=== PATIENT | female | born 1955 | race Caucasian/White ===

== ENCOUNTER → 2018-07-24 14:45 | Outpatient (CLI) | payer OTHER, SELFPAY ==
--- NOTE | 2018-07-24 | DI.MG.S_ITS ---
BILATERAL DIGITAL SCREENING MAMMOGRAM 3D/2D WITH CAD: 07/24/2018 CLINICAL: Routine screening. Comparison is made to exams dated: 07/23/2016 mammogram, 04/08/2011 mammogram, and 10/24/2007 mammogram - [facility]. The tissue of both breasts is heterogeneously dense. This may lower the sensitivity of mammography. Current study was also evaluated with a Computer Aided Detection (CAD) system. There are benign vascular calcifications in both breasts. There are mole markers on the right breast. There is a mole marker on the left breast. No significant masses, calcifications, or other findings are seen in either breast. There has been no significant interval change. IMPRESSION: There is no mammographic evidence of malignancy. A 1 year screening mammogram is recommended. This exam was interpreted at Station ID: [id number]. NOTE: For mammograms, a report in lay terms will be sent to the patient. Approximately 15% of breast malignancies will not be visualized mammographically. In the management of a palpable breast mass, a negative mammogram must not discourage biopsy of a clinically suspicious lesion. Electronically Signed By: Richard jewell/juan ramon:07/24/2018 17:37:19 letter sent: Normal Exam ACR BI-RADS Category 2: Benign Finding(s) 3342F
== END ==
DX: Z12.31 Encounter for screening mammogram for malignant neoplasm of breast (principal)
CPT/HCPCS: 77063; 77067

== ENCOUNTER → 2020-07-31 11:44 | Outpatient (CLI) | payer OTHER, SELFPAY ==
[2020-07-31 12:31] LABS: Add Manual Diff / Slide Review NO; Basophils Absolute Auto 100 /uL (0-100); Eosinophils Absolute Auto 100 /uL (0-450); Eosinophils Percent Auto 1.8 % (2-4); Hematocrit 42.1 % (36-46); Hemoglobin 14.3 g/dL (12.0-16.0); Lymphocytes Absolute Auto 2900 /uL (1100-4500); Lymphocytes Percent Auto 48.5 % (25-40); Mean Corpuscular HGB Conc 33.8 % (30-36); Mean Corpuscular Hemoglobin 31.3 PG (26-34); Mean Corpuscular Volume 92.6 fL (80-100); Monocytes Absolute Auto 400 /uL (0-900); Monocytes Percent Auto 6.6 % (3-14); Neutrophils Absolute Auto 2500 /uL (1500-7000); Neutrophils Percent Auto 42.1 % (50-75); Platelet Count 254 X10^3/uL (150-400); Red Blood Cell Count 4.55 X10^6/uL (4.0-5.2); Red Cell Distribution Width 12.9 % (11.6-14.8)
[2020-07-31 12:55] LABS: BUN Creatinine Ratio 21.5 (6-22); Blood Urea Nitrogen 17 mg/dL (7-17); Calcium 9.2 mg/dL (8.4-10.2); Carbon Dioxide 30 mmol/L (22-32); Chloride 101 mmol/L (98-107); Cholesterol 229 mg/dL (140-199); Estimated Glomerular Filt Rate > 60.0 mL/min (>60); Glucose 91 mg/dL (80-110); HDL Cholesterol 65 mg/dL (40-60); HEMOLYSIS < 15 (0-50); LDL Cholesterol Calculated 149 mg/dL (<100); Potassium 3.3 mmol/L (3.4-5.1); Sodium 136 mmol/L (137-145); Triglycerides 76 mg/dL (35-150)
[2020-07-31 13:05] LABS: Free T3, Triiodothyronine Free 2.74 pg/mL (2.77-5.27)
== END ==
PROVIDERS: PCP Family Medicine; Referring Provider Family Medicine; Visit Provider Family Medicine
DX: G89.29 Other chronic pain (principal); Z13.220 Encounter for screening for lipoid disorders; Z13.29 Encounter for screening for other suspected endocrine disorder
CPT/HCPCS: 36415; 80048; 80061; 84439; 84443; 84481; 85025

== ENCOUNTER → 2021-03-13 10:22 | Outpatient (CLI) | payer OTHER, SELFPAY ==
[2021-03-13 13:13] LABS: COVID19 -Nasal RAPID Negative (Negative)
== END ==
PROVIDERS: PCP Family Medicine; Visit Provider Nurse Practitioner
DX: Z20.822 Contact with and (suspected) exposure to COVID-19 (principal); R05.9 Cough, unspecified
CPT/HCPCS: 87635

== ENCOUNTER → 2021-04-11 10:53 | Outpatient (CLI) | payer OTHER, SELFPAY ==
[2021-04-11 11:21] LABS: COVID19 -Nasal RAPID Negative (Negative)
== END ==
PROVIDERS: PCP Family Medicine; Visit Provider Physician Assistant
DX: Z20.822 Contact with and (suspected) exposure to COVID-19 (principal)
CPT/HCPCS: 87635

== ENCOUNTER → 2021-09-17 08:02 | Outpatient (CLI) | payer OTHER, SELFPAY ==
[2021-09-17 08:48] LABS: Add Manual Diff / Slide Review NO; Basophils Absolute Auto 100 /uL (0-100); Eosinophils Absolute Auto 400 /uL (0-450); Eosinophils Percent Auto 6.2 % (2-4); Hematocrit 40.3 % (36-46); Hemoglobin 13.7 g/dL (12.0-16.0); Lymphocytes Absolute Auto 2800 /uL (1100-4500); Lymphocytes Percent Auto 48.8 % (25-40); Mean Corpuscular HGB Conc 34.1 % (30-36); Mean Corpuscular Hemoglobin 31.3 PG (26-34); Mean Corpuscular Volume 91.8 fL (80-100); Monocytes Absolute Auto 500 /uL (0-900); Monocytes Percent Auto 7.8 % (3-14); Neutrophils Absolute Auto 2100 /uL (1500-7000); Neutrophils Percent Auto 36.2 % (50-75); Platelet Count 274 X10^3/uL (150-400); Red Blood Cell Count 4.39 X10^6/uL (4.0-5.2); Red Cell Distribution Width 13.7 % (11.6-14.8); White Blood Cell Count 5.8 X10^3/uL (4.5-11.0)
[2021-09-17 09:26] LABS: Alanine Aminotransferase 15 IU/L (<35); Albumin 4.1 g/dL (3.5-5.0); Albumin Globulin Ratio 1.2 (1.0-2.8); Alkaline Phosphatase 45 U/L (38-126); Aspartate Aminotransferase 28 IU/L (14-36); BUN Creatinine Ratio 21.3 (6-22); Bilirubin Total 0.7 mg/dL (0.2-1.3); Blood Urea Nitrogen 19 mg/dL (7-17); Calcium 8.7 mg/dL (8.4-10.2); Carbon Dioxide 32 mmol/L (22-32); Chloride 104 mmol/L (98-107); Cholesterol 223 mg/dL (140-199); Estimated Glomerular Filt Rate > 60 mL/min (>60); Globulin 3.3 g/dL (1.7-4.1); Glucose 97 mg/dL (80-110); HDL Cholesterol 65 mg/dL (40-60); HEMOLYSIS < 15 (0-50); LDL Cholesterol Calculated 135 mg/dL (<100); Potassium 3.3 mmol/L (3.4-5.1); Sodium 140 mmol/L (137-145); Total Protein 7.4 g/dL (6.3-8.2); Triglycerides 114 mg/dL (35-150)
[2021-09-17 11:04] LABS: Free T3, Triiodothyronine Free 2.83 pg/mL (2.77-5.27); Free T4, Direct Thyroxine 1.02 ng/dL (0.78-2.19)
[2021-09-17 11:17] LABS: Thyroid Stimulating Hormone 3.43 uIU/mL (0.47-4.68)
== END ==
PROVIDERS: PCP Family Medicine; Referring Provider Family Medicine; Visit Provider Family Medicine
DX: E03.9 Hypothyroidism, unspecified (principal)
CPT/HCPCS: 36415; 80053; 80061; 84439; 84443; 84481; 85025

== ENCOUNTER → 2021-09-24 16:11 | Outpatient (CLI) | payer OTHER, SELFPAY ==
[2021-09-28 11:20] LABS: Fecal Immunochemical Test Negative (Negative)
== END ==
PROVIDERS: PCP Family Medicine; Referring Provider Family Medicine; Visit Provider Family Medicine
DX: Z12.11 Encounter for screening for malignant neoplasm of colon (principal)
CPT/HCPCS: 82274

== ENCOUNTER → 2021-10-21 14:53 | Outpatient (CLI) | payer OTHER, SELFPAY ==
--- NOTE | 2021-10-21 14:53 | DI.US.S_ITS ---
PROCEDURE: US PELVIC COMPLETE INDICATIONS: POSTMENOPAUSAL BLEEDING, PO estrogen placement. TECHNIQUE: Real-time scanning was performed of the pelvic organs, with image documentation. Additional endovaginal scanning was necessary due to incomplete visualization of the adnexal and endometrial structures by transabdominal scanning. COMPARISON: None. FINDINGS: Uterus: Uterus is anteverted and normal in size at 10.7 x 4.7 x 6.9 cm. The myometrium is homogeneous. The endometrium measures 14.1 mm combined thickness. Probable left-sided fibroid measures 2.4 x 2.4 x 2.0 cm Ovaries: Neither ovary is visualized. Other: No pathologic free abdominal or pelvic fluid. IMPRESSION: Postmenopausal endometrial thickening 14.1 mm. Endometrial biopsy recommended. Approved by: Minh Luis M.D. on 10/21/2021 at 15:26
== END ==
PROVIDERS: PCP Family Medicine; Referring Provider Family Medicine; Visit Provider Family Medicine
DX: N95.0 Postmenopausal bleeding (principal); R93.89 Abnormal findings on diagnostic imaging of other specified body structures
CPT/HCPCS: 76830; 76856

== ENCOUNTER → 2021-11-09 08:58 | Outpatient (CLI) | payer OTHER, SELFPAY ==
[2021-11-09 09:59] LABS: COVID19 -Nasal RAPID Negative (Negative)
== END ==
PROVIDERS: PCP Family Medicine; Visit Provider Specialist
DX: Z01.812 Encounter for preprocedural laboratory examination (principal); Z20.822 Contact with and (suspected) exposure to COVID-19
CPT/HCPCS: 87635

== ENCOUNTER 2021-11-09 13:07 | Day surgery (SDC) | payer OTHER, SELFPAY ==
[2021-11-04 14:08] VITALS: BMI 28.3
[2021-11-09] VITALS (8 sets, daily range): BP systolic 145–158; BP diastolic 68–78; PULSE 66–77; RESP 16–18; TEMP 36.3–36.9; O2SAT 97–100; BMI 28.3
--- NOTE | 2021-11-09 | PATH_ITS ---
[facility] Accession Number: [id number] . 01 Material submitted: . endometrium - ENDOMETRIAL . 01 Diagnosis: Endometrial: Portions of benign polyp, favor lower uterine segment origin. Negative for glandular hyperplasia, cytologic atypia, or malignancy. MRV 11/12/2021 2115 Local . 01 Electronically signed: . Marilee Watson MD, Pathologist NPI- [id number] . 01 Gross description: . ENDOMETRIAL: Received in formalin are minute fragments of mucoid and hemorrhagic material measuring 3.0 x 2.5 x 0.2 cm in aggregate. Submitted in toto in 1 cassette. /CPE 11/10/2021 0626 Local . 01 Pathologist provided ICD-10: N95.0 . 01 CPT . 798709 Specimen Comment: A courtesy copy of this report has been sent to [phone] Performed at: 01 [facility] [address] [place] [address], [place], [place] [id number] MD Alfredo Alvarez MD Phone: [phone]
[2021-11-09] MEDS: LACTATED RINGERS 1,000 ML 100 ML IV (14:00)
--- NOTE | 2021-11-09 14:41 | PM.PREOP ---
Pre-operative Note COVID-19 COVID-19 status: Negative Result date/Date tested (Pos, Neg/Pending): 11/09/21 Criteria for continued procedure: Expected advancement of disease process Interval Note History & Physical reviewed/Exam performed by Physician: Yes Changes to H&P: No
--- NOTE | 2021-11-09 15:34 | SUR.OPER ---
Lithotomy on padded OR bed, head on pillow, arms secured on padded arm boards at <90 degrees abduction. Legs secured in padded yellow fins stirrups.
--- NOTE | 2021-11-09 16:04 | PM.OP.1 ---
Operative Date/Time/Diagnoses Date of procedure: 11/09/21 Time of procedure: 16:03 Pre-op diagnosis: Postmenopausal bleeding with thickened endometrium on ultrasound Post-op diagnosis: same (Multiple endometrial and endocervical polyps) Procedure & Clinicians Procedure: Hysteroscopy with resection of polyps and D&C Same procedure as scheduled: Yes Indications: Postmenopausal bleeding with thickened endometrium on ultrasound Surgeon: Narda Skelton Click Yes if Unassisted: Yes Anesthesia Type: General Operative Notes Findings: Multiple endometrial and 1 endocervical polyp after resection small submucosal fibroid in the left cornual area of that will likely passed spontaneously otherwise thin endometrium Closure Type: not applicable Specimen(s): other (Endometrial biopsies with polyps and curettage) Estimated Blood Loss (mL): 10 Blood products transfused: none Procedure in detail: The patient was brought to the operating room where she underwent general anesthesia. She was placed in low stirrups She was prepped and draped in usual sterile fashion with pulsatile stockings in place and functional, warming in place, no antibiotics were indicated. Patient had urinated just prior to coming into the OR. A check system was reviewed with the staff in the room prior to beginning of the case. A single-tooth tenaculum was placed on the anterior lip of the cervix and the uterus dilated to #8 Hegar dilator. The hysteroscope was placed into the uterus with a sorbitol solution running and under constant suction. The resecting loop set at 80 W of cutting was used to resect the polyps down to the level of the endometrium as well as resecting the endocervical polyp. A endometrial curettage was performed. The polyps and the endometrial curettage were sent to pathology. The patient went to recovery room in good condition counts of instruments and sponges were correct. Estimated blood loss less than 5 mL. The sorbitol solution I=O approximately 3000 mL. Complications: none Post-operative Condition: stable Disposition: same day surgery Plan for aftercare: Home when awake and stable. Treatment and follow-up based on results pathology.
[2021-11-09] MEDS: OXYCODONE/ACETAMINOPHEN 5/325 TABLET 1 TAB PO (16:25)
--- NOTE | 2021-11-09 18:48 | SUR.PHASEII ---
1659 late entry Discharge teaching completed by Amisha Gomez RN
== END 2021-11-09 16:58 | disposition home or self-care (01) ==
PROVIDERS: PCP Family Medicine; Referring Provider Specialist; Visit Provider Specialist
PROC: 0UDB8ZZ Extraction of Endometrium, Via Natural or Artificial Opening Endoscopic (ICD-10-PCS; CPT 58558; principal; 2021-11-09 14:30)
DX: N95.0 Postmenopausal bleeding (principal); R93.89 Abnormal findings on diagnostic imaging of other specified body structures; I10 Essential (primary) hypertension; Z20.822 Contact with and (suspected) exposure to COVID-19; Z01.812 Encounter for preprocedural laboratory examination
CPT/HCPCS: 58558; 87635; J1100; J1885; J2405; J2704; J3010

== ENCOUNTER → 2022-04-12 11:05 | Outpatient (CLI) | payer OTHER, SELFPAY ==
[2022-04-12 11:50] LABS: Influenza A - CEPHEID Flu A NEGATIVE (NEGATIVE); Influenza B - CEPHEID Flu B NEGATIVE (NEGATIVE); Respiratory Syncytial Virus Negative (Negative)
[2022-04-12 11:54] LABS: COVID-19 CEPHEID 4-PLEX PCR Negative (Negative)
== END ==
PROVIDERS: PCP Family Medicine; Visit Provider Nurse Practitioner Family
DX: R05.9 Cough, unspecified (principal)
CPT/HCPCS: 0241U

== ENCOUNTER → 2022-05-17 08:50 | Outpatient (CLI) | payer OTHER, SELFPAY ==
[2022-05-17 10:09] LABS: Influenza A - CEPHEID Flu A NEGATIVE (NEGATIVE); Influenza B - CEPHEID Flu B NEGATIVE (NEGATIVE); Respiratory Syncytial Virus Negative (Negative)
[2022-05-17 10:18] LABS: COVID-19 CEPHEID 4-PLEX PCR Negative (Negative)
== END ==
PROVIDERS: PCP Family Medicine; Visit Provider Nurse Practitioner Family
DX: R11.10 Vomiting, unspecified (principal); Z20.822 Contact with and (suspected) exposure to COVID-19
CPT/HCPCS: 0241U

== ENCOUNTER 2022-06-01 11:36 | Emergency (ER) | payer OTHER, SELFPAY ==
[2022-06-01 11:41] VITALS: BP 122/57; PULSE 87; RESP 15; TEMP 36.6; O2SAT 99; BMI 27.4
== END 2022-06-01 12:22 | disposition left against medical advice (07) ==
PROVIDERS: Emergency Provider Emergency Medicine; PCP Family Medicine
CPT/HCPCS: 99281

== ENCOUNTER → 2022-06-01 13:55 | Outpatient (CLI) | payer OTHER, SELFPAY | PROVIDERS: PCP Family Medicine; Visit Provider Registered Nurse | DX: R30.0 Dysuria (principal) | CPT/HCPCS: 87077; 87086; 87186 ==

== ENCOUNTER → 2022-06-10 10:13 | Outpatient (CLI) | payer OTHER, SELFPAY ==
[2022-06-10 11:38] LABS: Add Manual Diff / Slide Review NO; Basophils Absolute Auto 100 /uL (0-100); Basophils Percent Auto 0.9 % (0-2); Eosinophils Absolute Auto 200 /uL (0-450); Eosinophils Percent Auto 2.8 % (2-4); Hemoglobin 11.5 g/dL (12.0-16.0); Lymphocytes Absolute Auto 2200 /uL (1100-4500); Lymphocytes Percent Auto 36.2 % (25-40); Mean Corpuscular HGB Conc 32.8 % (30-36); Mean Corpuscular Hemoglobin 29.7 PG (26-34); Mean Corpuscular Volume 90.6 fL (80-100); Monocytes Absolute Auto 400 /uL (0-900); Monocytes Percent Auto 7.3 % (3-14); Neutrophils Absolute Auto 3200 /uL (1500-7000); Neutrophils Percent Auto 52.8 % (50-75); Platelet Count 467 X10^3/uL (150-400); Red Blood Cell Count 3.86 X10^6/uL (4.0-5.2); Red Cell Distribution Width 13.9 % (11.6-14.8)
[2022-06-10 12:28] LABS: Alanine Aminotransferase 19 IU/L (<35); Albumin 3.4 g/dL (3.5-5.0); Albumin Globulin Ratio 0.8 (1.0-2.8); Alkaline Phosphatase 96 U/L (38-126); Aspartate Aminotransferase 26 IU/L (14-36); BUN Creatinine Ratio 10.5 (6-22); Bilirubin Total 0.4 mg/dL (0.2-1.3); Blood Urea Nitrogen 11 mg/dL (7-17); Calcium 8.7 mg/dL (8.4-10.2); Carbon Dioxide 27 mmol/L (22-32); Chloride 103 mmol/L (98-107); Estimated Glomerular Filt Rate 59 mL/min (>60); Globulin 4.4 g/dL (1.7-4.1); Glucose 88 mg/dL (80-110); HEMOLYSIS < 15 (0-50); Potassium 4.2 mmol/L (3.4-5.1); Sodium 138 mmol/L (137-145); Total Protein 7.8 g/dL (6.3-8.2)
[2022-06-10 12:57] LABS: TSH w/ Reflex to FT4 2.86 uIU/mL (0.47-4.68)
[2022-06-10 13:14] LABS: Vitamin B12 817 pg/mL (239-931)
== END ==
PROVIDERS: PCP Family Medicine; Referring Provider Family Medicine; Visit Provider Family Medicine
DX: E03.9 Hypothyroidism, unspecified (principal)
CPT/HCPCS: 36415; 80053; 82607; 84443; 85025

== ENCOUNTER → 2022-06-22 10:20 | Outpatient (CLI) | payer OTHER, SELFPAY | PROVIDERS: PCP Family Medicine; Visit Provider Nurse Practitioner Family | DX: R30.0 Dysuria (principal); R31.9 Hematuria, unspecified | CPT/HCPCS: 87077; 87086; 87186 ==

== ENCOUNTER → 2022-06-29 16:02 | Outpatient (CLI) | payer OTHER, SELFPAY ==
[2022-06-29 20:32] LABS: Appearance Urine UA SL CLOUDY; Bilirubin Urine UA NEGATIVE (NEGATIVE); Color Urine UA YELLOW; Glucose Urine UA NEGATIVE (Negative); Ketones Urine UA NEGATIVE (NEGATIVE); Leukocyte Esterase Urine UA 3+ (NEGATIVE); Nitrite Urine UA POSITIVE (Negative); Occult Blood Urine UA TRACE-INTACT (Negative); Protein Urine UA NEGATIVE (Negative); Urobilinogen Urine UA 0.2 E.U./dL (0.2)
[2022-06-29 20:40] LABS: RBC Urine 5-10/HPF (0-5/HPF)
[2022-06-29 20:41] LABS: Bacteria Urine Many (>30); Culture Indicated Urine Specimen Cultured; Squamous Epithelial Cell Urine 5-10 /HPF (0-5/HPF); Transitional Epi Cells Urine 1-5/HPF (0-5/HPF); WBC Urine 30-100/HPF (0-5/HPF)
== END ==
PROVIDERS: PCP Family Medicine; Referring Provider Family Medicine; Visit Provider Family Medicine
DX: R10.9 Unspecified abdominal pain (principal)
CPT/HCPCS: 81001; 87077; 87086; 87186

== ENCOUNTER → 2022-07-10 08:51 | Outpatient (CLI) | payer MEDICARE, OTHER, SELFPAY ==
[2022-07-10 10:25] LABS: Influenza A - CEPHEID Flu A NEGATIVE (NEGATIVE); Influenza B - CEPHEID Flu B NEGATIVE (NEGATIVE); Respiratory Syncytial Virus Negative (Negative)
[2022-07-10 11:52] LABS: COVID-19 CEPHEID 4-PLEX PCR Negative (Negative)
== END ==
PROVIDERS: PCP Family Medicine; Visit Provider Nurse Practitioner Family
DX: R30.0 Dysuria (principal); Z20.828 Contact with and (suspected) exposure to other viral communicable diseases; R52 Pain, unspecified; R53.83 Other fatigue
CPT/HCPCS: 0241U; 81002; 87086

== ENCOUNTER → 2022-08-09 08:38 | Outpatient (CLI) | payer MEDICARE, OTHER, SELFPAY ==
[2022-08-13 18:59] LABS: Ca oxalate monohydr 20 % (.); Hydroxyapatite 80 % (.); Size 11x7 mm (.)
== END ==
PROVIDERS: PCP Family Medicine; Visit Provider Specialist
DX: N39.0 Urinary tract infection, site not specified (principal); N95.2 Postmenopausal atrophic vaginitis; R31.9 Hematuria, unspecified; Z87.440 Personal history of urinary (tract) infections
CPT/HCPCS: 81002; 82365; 87086; 99215

== ENCOUNTER → 2022-08-13 10:13 | Outpatient (CLI) | payer MEDICARE, OTHER, SELFPAY ==
--- NOTE | 2022-08-13 10:13 | DI.CT.S_ITS ---
PROCEDURE: CT KIDNEY URETER BLADDER (KUB) INDICATIONS: pyelonephritis and hematuria TECHNIQUE: Axial sections were acquired from the lung bases to the pubic symphysis. Coronal and sagittal reformats were performed. For radiation dose reduction, the following was used: automated exposure control, adjustment of mA and/or kV according to patient size. COMPARISON: None. FINDINGS: Image quality: Excellent. Lung bases: Unremarkable. Heart: No significant findings. URINARY: Right Kidney: No stones or hydronephrosis. Right Ureter: No hydroureter. Left Kidney: The left kidney is moderately atrophic. There is marked left perinephric fat stranding. An intermediate density exophytic spiculated mass with associated architectural distortion of the surrounding retroperitoneal fat is present within the midpole of the left kidney and measures approximately 2.3 by 1.3 by 1.8 cm. An intermediate density exophytic lesion also extends off the lower pole of the left kidney which measures 1.8 x 1.7 x 2.0 cm. A nonobstructing staghorn calculus is present within the upper pole of the left kidney. There is moderate dilatation of the left renal collecting system. This has a low-density appearance suggesting hydronephrosis, although space-occupying lesion or thrombus could also be present. Left Ureter: The ureter demonstrates normal course and caliber without ureterolithiasis. Bladder: The bladder is partially fluid-filled and appears mildly thick walled. ABDOMEN: Liver: Unremarkable. Gallbladder: Unremarkable. Biliary ducts: Unremarkable. Pancreas: Unremarkable. Spleen: Unremarkable. Adrenal Glands: Unremarkable. Stomach and Bowel: Stomach, small bowel loops, and colon are unremarkable. There are scattered sigmoid diverticula. No evidence for diverticulitis. The appendix is thin walled. Peritoneum: No abnormal intraperitoneal fluid. No free air. Ventral Wall: No hernia. Abdominal Nodes: No enlarged retroperitoneal or mesenteric lymph nodes. Vessels: Aorta and inferior vena cava are normal in size. PELVIS: Pelvic Organs: Unremarkable. Pelvic Nodes: Unremarkable. Miscellaneous: No inguinal hernias are seen. Bones: Unremarkable. IMPRESSION: 1. Atrophic left kidney with perinephric fat stranding, hydronephrosis, and 2 intermediate density exophytic lesions as described above. Findings are suspicious for exophytic mass lesions in the setting of renal neoplasm; however complex perirenal abscesses could also be considered in the differential. Multiphase renal mass protocol CT or MRI is recommended to further characterize these findings. 2. Right hydronephrosis without obstructing calculus. Urothelial obstructing lesion could be considered in the differential. 3. Nonobstructive left staghorn calculus and left renal atrophy. 4. Diverticulosis. No acute diverticulitis. Normal appendix. Dictated by: Mamie Barrera M.D. on 08/13/2022 at 12:39 Approved by: Mamie Barrera M.D. on 08/13/2022 at 12:47
== END ==
PROVIDERS: PCP Family Medicine; Referring Provider Specialist; Visit Provider Specialist
DX: N12 Tubulo-interstitial nephritis, not specified as acute or chronic (principal); B96.20 Unspecified Escherichia coli [E. coli] as the cause of diseases classified elsewhere; N95.0 Postmenopausal bleeding; R31.9 Hematuria, unspecified; K57.30 Diverticulosis of large intestine without perforation or abscess without bleeding; N28.9 Disorder of kidney and ureter, unspecified; N20.0 Calculus of kidney; N13.30 Unspecified hydronephrosis; N26.1 Atrophy of kidney (terminal)
CPT/HCPCS: 74176

== ENCOUNTER → 2022-08-20 09:12 | Outpatient (CLI) | payer MEDICARE, OTHER, SELFPAY ==
--- NOTE | 2022-08-20 | DI.MG.S_ITS ---
BILATERAL DIGITAL SCREENING MAMMOGRAM 3D/2D WITH CAD: 08/20/2022 CLINICAL: Routine screening. Comparison is made to exams dated: 07/24/2018 mammogram, 07/23/2016 mammogram, and 04/08/2011 mammogram - [facility]. Both breasts are heterogeneously dense, which may obscure small masses (category c / 51-75% glandular tissue). Current study was also evaluated with a Computer Aided Detection (CAD) system. There are benign vascular calcifications in the left breast. No significant masses, calcifications, or other findings are seen in either breast. There has been no significant interval change. IMPRESSION: BENIGN There is no mammographic evidence of malignancy. A 1 year screening mammogram is recommended. Based on the Tyrer Cuzick model (a risk assessment model) the patient's lifetime risk is 7.2% and her 10 year risk is 3.6%. According to the ACR, ACS, and NCCN guidelines, an annual breast MRI exam along with mammogram is recommended if the patient's lifetime risk is 20% or greater. This exam was interpreted at Station ID: [id number]. NOTE: For mammograms, a report in lay terms will be sent to the patient. Approximately 15% of breast malignancies will not be visualized mammographically. In the management of a palpable breast mass, a negative mammogram must not discourage biopsy of a clinically suspicious lesion. Electronically Signed By: Julieta galvez/juan ramon:08/20/2022 17:25:13 letter sent: Normal Exam ACR BI-RADS Category 2: Benign Finding(s) 3342F
== END ==
PROVIDERS: PCP Physician Assistant; Referring Provider Physician Assistant; Visit Provider Physician Assistant
DX: Z12.31 Encounter for screening mammogram for malignant neoplasm of breast (principal)
CPT/HCPCS: 77063; 77067

== ENCOUNTER → 2022-09-01 08:41 | Outpatient (CLI) | payer MEDICARE, OTHER, SELFPAY | PROVIDERS: PCP Physician Assistant; Visit Provider Specialist | DX: N39.0 Urinary tract infection, site not specified (principal); N95.2 Postmenopausal atrophic vaginitis; N20.0 Calculus of kidney; N28.89 Other specified disorders of kidney and ureter; Z87.440 Personal history of urinary (tract) infections | CPT/HCPCS: 81002; 87077; 87086; 87186; 99215 ==

== ENCOUNTER → 2022-09-10 09:33 | Outpatient (CLI) | payer MEDICARE, OTHER, SELFPAY ==
[2022-09-10 12:43] LABS: BUN Creatinine Ratio 13.5 (6-22); Blood Urea Nitrogen 13 mg/dL (7-17); Calcium 9.2 mg/dL (8.4-10.2); Carbon Dioxide 30 mmol/L (22-32); Chloride 95 mmol/L (98-107); Estimated Glomerular Filt Rate > 60 mL/min (>60); Glucose 79 mg/dL (80-110); HEMOLYSIS < 15 (0-50); Potassium 3.4 mmol/L (3.4-5.1); Sodium 133 mmol/L (137-145)
== END ==
PROVIDERS: PCP Physician Assistant; Referring Provider Specialist; Visit Provider Specialist
DX: R79.89 Other specified abnormal findings of blood chemistry (principal)
CPT/HCPCS: 36415; 80048

== ENCOUNTER → 2022-09-22 08:34 | Outpatient (CLI) | payer MEDICARE, OTHER, SELFPAY ==
--- NOTE | 2022-09-22 08:41 | DI.MRI.S_ITS ---
PROCEDURE: MR ABDOMEN RENAL PROTOCOL COMPARISON: CT 08/13/2022. INDICATIONS: left kidney is relatively atrophic, with perinephric TECHNIQUE: Multiphasic, multisequential MRI of the abdomen with and without contrast. FINDINGS: Kidneys: On the posterior margin of the left inferior kidney, there is a T2 isointense, T1 isointense region which demonstrates enhancement similar to the renal parenchyma (series 14, image 44). There is chronic, mild left-sided hydronephrosis, with a transition point at the ureteropelvic junction. There appears to be an enhancing filling defect within this region, versus decompression (series 15, image 50). Associated thickening of the extrarenal pelvis. Lung bases: Clear. Liver: No suspicious mass. No significant steatosis. Gallbladder: Gallbladder sludge. Spleen: Normal size. Pancreas: No pancreatic ductal dilation or solid mass. Adrenal glands: No adrenal nodules. Bowel: Normal colonic caliber. Lymph nodes: No adenopathy. Vessels: No infrarenal aortic aneurysm. Bones: Normal bone marrow signal. No aggressive osseous abnormality. L1 hemangioma. IMPRESSION: There is chronic, mild left-sided hydronephrosis, with a transition point at the ureteropelvic junction. There appears to be an enhancing filling defect within this region, versus decompression (series 15, image 50). Associated thickening of the extrarenal pelvis. Findings are concerning for transitional cell carcinoma. On the posterior margin of the left inferior kidney, there is a T2 isointense, T1 isointense region which demonstrates enhancement similar to the renal parenchyma. Findings could represent renal cell carcinoma. Dictated by: Miguel Houser M.D. on 09/22/2022 at 12:24 Approved by: Miguel Houser M.D. on 09/22/2022 at 12:32
[2022-09-22 09:17] LABS: Hematocrit 40.6 % (36-46); Hemoglobin 13.8 g/dL (12.0-16.0); Mean Corpuscular HGB Conc 34.1 % (30-36); Mean Corpuscular Hemoglobin 29.8 PG (26-34); Mean Corpuscular Volume 87.4 fL (80-100); Platelet Count 270 X10^3/uL (150-400); Red Blood Cell Count 4.64 X10^6/uL (4.0-5.2); Red Cell Distribution Width 14.8 % (11.6-14.8); White Blood Cell Count 5.9 X10^3/uL (4.5-11.0)
[2022-09-22 09:19] LABS: Add Manual Diff / Slide Review YES
[2022-09-22 09:31] LABS: Neutrophils Absolute Manual 1180 /uL (3000-5900); RBC Morphology Normal Morphology; Total Cells Counted 100
[2022-09-22 10:04] LABS: Alanine Aminotransferase 19 IU/L (<35); Albumin Globulin Ratio 1.2 (1.0-2.8); Alkaline Phosphatase 52 U/L (38-126); Aspartate Aminotransferase 26 IU/L (14-36); Bilirubin Total 0.5 mg/dL (0.2-1.3); Blood Urea Nitrogen 12 mg/dL (7-17); Calcium 9.3 mg/dL (8.4-10.2); Carbon Dioxide 29 mmol/L (22-32); Chloride 100 mmol/L (98-107); Cholesterol 243 mg/dL (140-199); Estimated Glomerular Filt Rate > 60 mL/min (>60); Globulin 3.3 g/dL (1.7-4.1); Glucose 82 mg/dL (80-110); HDL Cholesterol 53 mg/dL (40-60); HEMOLYSIS < 15 (0-50); LDL Cholesterol Calculated 163 mg/dL (<100); Potassium 3.7 mmol/L (3.4-5.1); Sodium 137 mmol/L (137-145); Total Protein 7.3 g/dL (6.3-8.2); Triglycerides 136 mg/dL (35-150)
--- NOTE | 2022-09-22 11:26 | DI.DEXA.S_ITS ---
Bone Density Report Name: SHERIN JI Age: 67 Sex: Female Ethnicity: White Date of : 1955 Indication: postmenopausal; screening for osteoporosis; Referring Provider: MOE ARGUETA Study: Bone densitometry was performed. Exam Date: September 22, 2022 Accession number: [id number] Bone Density: Region BMD T-score Z-score Classification AP Spine(L1, L2, L3) 0.925 -0.8 1.0 Normal Femoral Neck (Left) 0.884 0.3 1.9 Normal Total Hip (Left) 0.889 -0.4 0.9 Normal Femoral Neck (Right) 0.809 -0.4 1.2 Normal Total Hip (Right) 0.858 -0.7 0.6 Normal Total Hip Mean 0.873 -0.6 0.8 Normal World Health Organization criteria for BMD impression classify patients as: Normal (T-score at or above -1.0), Osteopenia (T-score between -1.0 and -2.5), or Osteoporosis (T-score at or below -2.5). 10-year Fracture Risk: FRAX not reported because: All T-scores for Spine Total, Hip Total, Femoral Neck at or above -1.0 Impression: The patient has normal bone mass. Discussion: BONE DENSITY IS ABOVE THE MINIMUM DESIRABLE LEVEL AT ALL SKELETAL SITES TESTED. This patient?s bone mineral density is above the minimum desirable level (T-score -1.0 or better) at all sites measured. The patient should follow a healthful lifestyle (good nutrition with adequate calcium and vitamin D, and appropriate weight-bearing exercise). Follow-Up: Consider repeating this study in 5 years or sooner if there is some new clinical indication. Reported by: JOYA REYES MD on 09/22/2022 11:35:00 AM.
[2022-09-23 16:58] LABS: Hep C Virus Ab w/Reflex Quant NEGATIVE s/c (NEGATIVE)
[2022-09-24 14:16] LABS: Calcium 9.4 mg/dL (8.7-10.3); Parathyroid Hormone, Intact 23 pg/mL (15-65)
== END ==
PROVIDERS: PCP Physician Assistant; Referring Provider Specialist; Visit Provider Specialist
DX: N28.89 Other specified disorders of kidney and ureter (principal); N13.30 Unspecified hydronephrosis; N20.0 Calculus of kidney; N12 Tubulo-interstitial nephritis, not specified as acute or chronic; N39.0 Urinary tract infection, site not specified; B96.20 Unspecified Escherichia coli [E. coli] as the cause of diseases classified elsewhere; Z13.820 Encounter for screening for osteoporosis; Z78.0 Asymptomatic menopausal state; Z13.6 Encounter for screening for cardiovascular disorders; R79.89 Other specified abnormal findings of blood chemistry; D64.9 Anemia, unspecified; Z11.59 Encounter for screening for other viral diseases; Z87.440 Personal history of urinary (tract) infections
CPT/HCPCS: 36415; 74183; 77080; 80053; 80061; 82310; 83970; 85007; 85025; 86803; A9579

== ENCOUNTER 2022-10-11 10:14 | Day surgery (SDC) | payer MEDICARE, OTHER, SELFPAY ==
[2022-10-08 09:03] VITALS: BMI 28.0
[2022-10-11] VITALS (8 sets, daily range): BP systolic 151–182; BP diastolic 82–94; PULSE 73–101; RESP 12–17; TEMP 36–36.3; O2SAT 96–98; BMI 28.0
--- NOTE | 2022-10-11 | DI.RAD.S_ITS ---
PROCEDURE: XR ABDOMEN 1V INDICATIONS: LT STENT PLACEMENT TECHNIQUE: 2 fluoroscopic spot films and 1 cine run were obtained intraoperatively COMPARISON: None. FINDINGS: Low resolution intraoperative films show sequential placement of a left ureteral stent IMPRESSION: Fluoroscopic guidance Approved by: Minh Luis M.D. on 10/11/2022 at 16:15
--- NOTE | 2022-10-11 10:37 | P.OP.PRE_ITS ---
Pre-operative Note COVID-19 Criteria for continued procedure: Expected advancement of disease process, Possibility delay results in more complex future surgery or treatment, Increased loss of function, Deterioration of the patient's condition or overall health, Delay expected to result in less-positive ultimate med/surg outcome and Non- surgical alternatives not available or appropriate per current SOC Interval Note History & Physical reviewed/Exam performed by Physician: Yes Changes to H&P: No
[2022-10-11] MEDS: ACETAMINOPHEN 325 MG TABLET 975 MG PO (10:53)
[2022-10-11] MEDS: LACTATED RINGERS 1,000 ML 42 ML IV (10:55)
[2022-10-11] MEDS: CIPROFLOXACIN 400 MG/200 ML PIGGYBACK 200 MG IV (11:14)
--- NOTE | 2022-10-11 11:36 | SUR.OPER ---
Lithotomy on padded OR bed, head on pillow, arms secured on padded arm boards at <90 degrees abduction. Legs secured in padded yellow fins stirrups.
--- NOTE | 2022-10-11 12:18 | PM.OP.1 ---
Operative Date/Time/Diagnoses Date of procedure: 10/11/22 Time of procedure: 12:15 Pre-op diagnosis: 1. Left hydronephrosis. 2. Left ureteropelvic junction abnormality on imaging. 3. Left upper pole staghorn calculus. 4. Left renal neoplasm. Post-op diagnosis: same Procedure & Clinicians Procedure: 1. Cystoscopy/left retrograde pyelogram. 2. Cystoscopy/dilation left ureteropelvic junction obstruction. 3. Cystoscopy/left intrarenal ureteroscopy. 4. Cystoscopy/placement left ureteral stent (8 Chadian by 22-32 cm multi-length). Same procedure as scheduled: Yes Indications: 1. Left ureteropelvic junction thickening/filling defect on preoperative imaging. 2. Left upper pole staghorn calculus. 3. Left posterior-inferior pole exophytic left renal neoplasm. 4. History recurrent UTI. Surgeon: Vinny Sumner Click Yes if Unassisted: Yes Anesthesia Type: General Operative Notes Findings: 1. Urethra-normal caliber and small urethral caruncle. 2. Bladder-not well visualized due to suspended debris. No obvious neoplasm. No stone. Normal appearing ureteral orifices bilaterally. Closure Type: not applicable Specimen(s): none sent Applied: other (Eight Chadian by 22-32 cm multi-length stent.) Estimated Blood Loss (mL): 2 Blood products transfused: none Procedure in detail: Patient was positioned in supine was administered general anesthesia. She was then repositioned in semi lithotomy in the lower abdomen, genitalia, and groin were then prepped and draped in sterile fashion. The 22 Chadian panendoscope was then passed lower urinary tract with the findings as described above. A 0.35 hybrid guidewire was then advanced through the scope into the left collecting system under direct fluoroscopic guidance. The mares endoscope and backloaded off this hybrid guidewire and a dual-lumen ureteral access sheath was advanced over the wire under fluoroscopic guidance. Next, a 2nd 0.35 hybrid guidewire was advanced through the accessory lumen of the dual-lumen ureteral access sheath and advanced proximally under fluoroscopic guidance. Now the dual-lumen ureteral access sheath was backloaded off both wires. One wire was secured to the surgical drape. The other wire was then used as a guide for advancement of a during a disposable flexible ureteral scope on trial. Scope was advanced proximally. The guidewire was then removed. A retrograde pyelogram was then performed demonstrated dilated intrarenal system. On careful inspection in the vicinity of the UPJ there was evidence of trauma indicating likely existing UPJ obstruction. There was no obvious neoplasm. There were changes of the urothelium consistent with trauma and also inflammation. It was difficult to visualized much of the anterior due to debris related to the stone residing in the upper pole. The flexible ureteral scope was then removed. The mares endoscope was then front loaded onto the safety hybrid wire and advanced in the lower urinary tract. Over this an 8 Chadian by 22-32 cm multilink stent was advanced over the wire and then into the left collecting system under direct and fluoroscopic guidance. The stent was left in excellent position. NO RETRIEVAL LINE WAS LEFT ATTACHED. The bladder was then drained completely and the scope was removed. The patient was repositioned in supine, was awakened, transferred to [facility], and transferred recovery in stable condition. Complications: none Post-operative Condition: stable Disposition: PACU Plan for aftercare: Discharge home.
[2022-10-11 13:11] LABS: Appearance Urine UA CLEAR; Bilirubin Urine UA NEGATIVE (NEGATIVE); Color Urine UA YELLOW; Glucose Urine UA NEGATIVE (Negative); Ketones Urine UA NEGATIVE (NEGATIVE); Leukocyte Esterase Urine UA 2+ (NEGATIVE); Nitrite Urine UA NEGATIVE (Negative); Occult Blood Urine UA TRACE-INTACT (Negative); Protein Urine UA NEGATIVE (Negative); Specific Gravity Urine UA 1.015 (1.000-1.035); Urobilinogen Urine UA 0.2 E.U./dL (0.2)
[2022-10-11 13:42] LABS: Bacteria Urine Few (2-10); Culture Indicated Urine Specimen Cultured; RBC Urine 0-1/HPF (0-5/HPF); Squamous Epithelial Cell Urine 0-1 /HPF (0-5/HPF); WBC Urine 10-30/HPF (0-5/HPF)
== END 2022-10-11 13:35 | disposition home or self-care (01) ==
PROVIDERS: PCP Physician Assistant; Referring Provider Specialist; Visit Provider Specialist
PROC: (CPT 52345; principal; 2022-10-11 11:15)
DX: N13.0 Hydronephrosis with ureteropelvic junction obstruction (principal); N13.2 Hydronephrosis with renal and ureteral calculous obstruction; N39.0 Urinary tract infection, site not specified; N95.2 Postmenopausal atrophic vaginitis
CPT/HCPCS: 52345; 52332; 74018; 76000; 81001; 87086; J0744; J1100; J2250; J2405; J2704; J3010

== ENCOUNTER → 2022-12-16 09:14 | Outpatient (CLI) | payer MEDICARE, OTHER, SELFPAY ==
[2022-12-16 10:45] LABS: Appearance Urine UA CLOUDY; Bilirubin Urine UA NEGATIVE (NEGATIVE); Color Urine UA YELLOW; Glucose Urine UA NEGATIVE (Negative); Ketones Urine UA NEGATIVE (NEGATIVE); Leukocyte Esterase Urine UA 3+ (NEGATIVE); Nitrite Urine UA NEGATIVE (Negative); Occult Blood Urine UA 1+ (Negative); Protein Urine UA TRACE (Negative); Urobilinogen Urine UA 0.2 E.U./dL (0.2)
[2022-12-16 11:02] LABS: pH Urine UA 7.5 (4.5-8.0)
[2022-12-16 11:24] LABS: Bacteria Urine Few (2-10); Culture Indicated Urine Specimen Cultured; RBC Urine 1-5/HPF (0-5/HPF); Squamous Epithelial Cell Urine 1-5 /HPF (0-5/HPF); WBC Urine 10-30/HPF (0-5/HPF)
== END ==
PROVIDERS: PCP Physician Assistant; Referring Provider Nurse Practitioner; Visit Provider Nurse Practitioner
DX: N20.0 Calculus of kidney (principal)
CPT/HCPCS: 81001; 87077; 87086; 87186

== ENCOUNTER → 2023-03-18 12:44 | Outpatient (CLI) | payer MEDICARE, OTHER, SELFPAY ==
--- NOTE | 2023-03-18 | DI.US.S_ITS ---
PROCEDURE: US RENAL COMPLETE INDICATIONS: CALCULUS OF KIDNEY TECHNIQUE: Real-time scanning was performed of the kidneys and bladder, with image documentation. COMPARISON: None. FINDINGS: Kidneys: Kidneys are normal in size. Right kidney measures 12.1 cm long; left kidney measures 5.9 cm long. Right renal cortical thickness is 1.5 cm; left renal cortical thickness is 0.8 cm. Renal cortical echotexture is normal. No hydronephrosis or nephrolithiasis. No suspicious solid mass lesions. Bladder: Pre-void bladder volume is 290 mL. Post-void residual is 13 mL. Pre-void images demonstrate no intraluminal masses or stones. On pre-void images, no ureteral jets are noted with color Doppler interrogation. (Of note, ureteral jets may not be detectable in up to 25% of cases due to insufficient differences in specific gravity between ureteral and bladder urine). Miscellaneous: No free pelvic fluid. IMPRESSION: 1. Left renal atrophy. 2. No hydronephrosis. Dictated by: Lor Hunter M.D. on 03/18/2023 at 14:41 Approved by: Lor Hunter M.D. on 03/18/2023 at 14:42
== END ==
PROVIDERS: PCP Physician Assistant; Referring Provider Nurse Practitioner; Visit Provider Nurse Practitioner
DX: N20.0 Calculus of kidney (principal); N26.1 Atrophy of kidney (terminal)
CPT/HCPCS: 76770

== ENCOUNTER → 2023-03-18 12:48 | Outpatient (CLI) | payer MEDICARE, OTHER, SELFPAY ==
--- NOTE | 2023-03-18 | DI.RAD.S_ITS ---
PROCEDURE: XR ABDOMEN 1V INDICATIONS: NEPHROLITHIASIS TECHNIQUE: One view of the abdomen acquired. COMPARISON: [facility], CR, XR ABDOMEN 1V, 10/11/2022, 11:58. FINDINGS: Surgical changes and devices: None. Bowel: Bowel gas pattern is normal. Soft tissues: Both renal shadows are obscured by fecal debris. No obvious calcification Bones: Lower lumbar spine degenerative changes IMPRESSION: Both renal shadows are largely obscured by fecal debris, but no obvious renal calculi. Approved by: Minh Luis M.D. on 03/18/2023 at 16:07
== END ==
PROVIDERS: PCP Physician Assistant; Referring Provider Nurse Practitioner; Visit Provider Nurse Practitioner
DX: N20.0 Calculus of kidney (principal); N26.1 Atrophy of kidney (terminal)
CPT/HCPCS: 74018; 76770

== ENCOUNTER → 2023-09-12 08:40 | Outpatient (CLI) | payer MEDICARE, OTHER, SELFPAY ==
--- NOTE | 2023-09-12 08:42 | DI.RAD.S_ITS ---
PROCEDURE: XR LUMBAR SPINE MIN 4V INDICATIONS: LOW BACK PAIN TECHNIQUE: 5 views of the lumbar spine were acquired, including bilateral oblique views. COMPARISON: [facility], CT, CT KIDNEY URETER BLADDER (KUB), 08/13/2022, 10:15. FINDINGS: Bones: 5 nonrib-bearing vertebrae are present. Anterolisthesis of L4 on L5 measuring 0.8 cm. Minimal scoliosis. No vertebral body compression fractures. No suspicious bony lesions. Soft tissues: Overlying bowel gas pattern is normal. No suspicious soft tissue calcifications. Oblique images: No pars defects. IMPRESSION: No compression fracture. Grade 1 anterolisthesis of L4 on L5. Dictated by: J Luis De Dios M.D. on 09/12/2023 at 11:58 Approved by: J Luis De Dios M.D. on 09/12/2023 at 12:00
== END ==
PROVIDERS: PCP Physician Assistant; Referring Provider Anesthesiology; Visit Provider Anesthesiology
DX: M47.26 Other spondylosis with radiculopathy, lumbar region (principal); M25.551 Pain in right hip; M43.16 Spondylolisthesis, lumbar region; M99.03 Segmental and somatic dysfunction of lumbar region; G89.29 Other chronic pain
CPT/HCPCS: 72110; 99214

== ENCOUNTER → 2023-09-18 10:23 | Outpatient (CLI) | payer MEDICARE, OTHER, SELFPAY ==
--- NOTE | 2023-09-18 10:25 | DI.MRI.S_ITS ---
PROCEDURE: MR LUMBAR SPINE WO CON INDICATIONS: Lumbar radiculopathy TECHNIQUE: Noncontrast sagittal T1 spin echo and T2 fast echo, sagittal STIR, and T2 fast spin echo through the lumbar spine. In cases with scoliosis, additional coronal T2 fast spin echo may be performed. COMPARISON: [facility], CR, XR LUMBAR SPINE MIN 4V, 09/12/2023, 8:51. FINDINGS: Image quality: Excellent. Alignment and Curvature: Partial sacralization of L5. 5 mm anterolisthesis L4 on L5. Bone Marrow: Marrow is of normal overall signal. No acute vertebral body compression fractures. Spinal Cord: Conus medullaris terminates at the L1-L2 level. Visualized cord demonstrates normal signal and size. Paraspinous Soft Tissues: No paravertebral masses. T12-L1: Normal appearance. L1-L2: Disc bulge. Mild facet hypertrophy. No canal stenosis or foraminal stenosis. L2-L3: Posterior disc post osteophyte. Facet hypertrophy. Epidural lipomatosis. Moderate canal stenosis. Reference T2 axial image 16 of series 5. Bilateral foraminal disc bulges. [id number] right foraminal narrowing. Moderate left foraminal narrowing with flattening deformity on the exiting left L2 nerve root. Reference T2 sagittal image 14 of series 2. L3-L4: Disc bulge. Prominent facet and ligament hypertrophy. Epidural lipomatosis. Moderate to severe canal stenosis. Reference axial image 21 of series 5. Moderate bilateral foraminal narrowing with mild flattening deformity on the exiting bilateral L3 nerve roots. L4-L5: Exuberant facet hypertrophy. 5 mm anterolisthesis L4 on L5. Moderate to severe canal stenosis. Reference axial image 26 of series 5. Severe right foraminal narrowing with right foraminal L4 nerve root impingement. This is in part secondary to right foraminal disc bulge. Reference sagittal image 7 of series 2. L5-S1: Transitional L5 anatomy. Facet hypertrophy. Disc bulge. No canal stenosis or foraminal stenosis. IMPRESSION: 1. Please note that there is partial sacralization of L5. Careful correlation for correct surgical level is required if surgery is planned. 2. Multilevel underlying facet hypertrophy. This is exuberant at L4-L5. 3. Canal stenosis is moderate at L2-L3, moderate to severe at L3-L4, and moderate to severe at L4-L5. 4. Multilevel foraminal narrowing as described above. Findings include moderate left foraminal narrowing at L2-L3, moderate bilateral foraminal narrowing at L3-L4, and severe right foraminal narrowing at L4-L5. Dictated by: Odin Cortez M.D. on 09/19/2023 at 10:18 Approved by: Odin Cortez M.D. on 09/19/2023 at 10:46
== END ==
LOC: MRI 10:24
PROVIDERS: PCP Physician Assistant; Referring Provider Anesthesiology; Visit Provider Anesthesiology
DX: M43.27 Fusion of spine, lumbosacral region (principal); M47.26 Other spondylosis with radiculopathy, lumbar region; M47.27 Other spondylosis with radiculopathy, lumbosacral region; M48.061 Spinal stenosis, lumbar region without neurogenic claudication
CPT/HCPCS: 72148

== ENCOUNTER → 2024-04-10 11:20 | Outpatient (CLI) | payer MEDICARE, OTHER, SELFPAY ==
--- NOTE | 2024-04-10 11:31 | DI.CT.S_ITS ---
PROCEDURE: CT KIDNEY URETER BLADDER (KUB) INDICATIONS: 69 y/o F w/ right flank pain, eval for stone. TECHNIQUE: Axial sections were acquired from the lung bases to the pubic symphysis. Coronal and sagittal reformats were performed. For radiation dose reduction, the following was used: automated exposure control, adjustment of mA and/or kV according to patient size. COMPARISON: , MR, MR ABDOMEN WITH/WITHOUT CONTRAST, 12/18/2023, 9:26. [facility], CT, CT KIDNEY URETER BLADDER (KUB), 08/13/2022, 10:15. FINDINGS: Image quality: Excellent Lower chest: Unremarkable Liver: Hepatomegaly The gallbladder, pancreas, spleen, and the left adrenal gland are unremarkable. Mild thickening of the medial limb of the right adrenal gland, unchanged from prior exam. The right kidney is unremarkable. No hydronephrosis or right renal stone. The right ureter is unremarkable. 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 Stone in the superior pole of the left kidney. Interval significant atrophy of the left kidney. Mild left para neck fat stranding. No left hydronephrosis. The left ureter is unremarkable. The bladder is mildly thick-walled and mildly under distended. The uterus is anteverted. The left in the right ovary are remarkable. GI: Colonic diverticulosis, most pronounced in the sigmoid colon. No diverticulitis. The appendix is unremarkable. No bowel obstruction or bowel wall thickening. Mild calcification of the abdominal aorta. No abdominal aortic aneurysm. No abdominal or pelvic lymphadenopathy. Body wall: Unremarkable Bones: Mild dextroscoliosis of the lumbar spine. No suspicious lytic or blastic lesion. IMPRESSION: 1. Previously seen staghorn stone in the left kidney has resolved. Two sub 5 mm left renal stone. Interval significant atrophy of the left kidney. No left hydronephrosis. 2. Mild wall thickening of the bladder, nonspecific. Recommend correlation with urinalysis. 3. Additional chronic findings described above. Dictated by: Dara Hogan M.D. on 04/10/2024 at 16:48 Approved by: Dara Hogan M.D. on 04/10/2024 at 17:01
== END ==
LOC: CT 11:21
PROVIDERS: PCP Physician Assistant; Referring Provider Urology; Visit Provider Urology
DX: N20.0 Calculus of kidney (principal); K57.90 Diverticulosis of intestine, part unspecified, without perforation or abscess without bleeding; R16.0 Hepatomegaly, not elsewhere classified; R10.9 Unspecified abdominal pain; Z87.442 Personal history of urinary calculi
CPT/HCPCS: 74176

== ENCOUNTER → 2024-05-01 08:12 | Outpatient (CLI) | payer MEDICARE, OTHER, SELFPAY ==
--- NOTE | 2024-05-01 08:14 | DI.US.S_ITS ---
PROCEDURE: US ABDOMEN LIMITED INDICATIONS: RIGHT UPPER QUADRANT PAIN INTERMITTENT AND DIARRHEA TECHNIQUE: Real-time scanning was performed of the abdominal and retroperitoneal organs, with image documentation. COMPARISON: None. FINDINGS: Liver: Liver is normal in size and homogeneous in echotexture. Gallbladder: There is no gallstones. No gallbladder wall thickening or pericholecystic fluid. No sonographic Hernandez sign. Biliary ducts: Intrahepatic bile ducts are non-dilated. Extrahepatic bile duct caliber measures 3.9 mm. Normal is 6-7 mm or less in diameter, or 10 mm or less post-cholecystectomy. Pancreas: Visualized portions of the pancreas are sonographically normal. Miscellaneous: No free abdominal fluid. IMPRESSION: Unremarkable ultrasound examination of right upper quadrant abdomen. Dictated by: Toño Ramos M.D. on 05/01/2024 at 9:12 Approved by: Toño Ramos M.D. on 05/01/2024 at 9:12
== END ==
PROVIDERS: PCP Physician Assistant; Referring Provider Physician Assistant; Visit Provider Physician Assistant
DX: R10.11 Right upper quadrant pain (principal)
CPT/HCPCS: 76705

== ENCOUNTER → 2024-11-20 11:15 | Outpatient (CLI) | payer MEDICARE, OTHER, SELFPAY ==
--- NOTE | 2024-11-20 11:22 | DI.RAD.S_ITS ---
PROCEDURE: XR HIP W PEL IF DONE RT 2V INDICATIONS: Pain in right hip TECHNIQUE: AP pelvis and frogleg right hip acquired COMPARISON: None. 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 This would increased risk of Bertolotti syndrome if there is chronic or recurrent left sacral pain SI and hip joints: Moderate right and severe left hip degeneration noted. SI joints are normal. Soft tissues: No soft tissue swelling, calcification or mass. IMPRESSION: Severe left and moderate right hip degeneration. Dictated by: Endy Munoz M.D. on 11/21/2024 at 11:59 Approved by: Endy Munoz M.D. on 11/21/2024 at 12:00
== END ==
PROVIDERS: PCP Physician Assistant; Referring Provider Physician Assistant; Visit Provider Physician Assistant
DX: M16.0 Bilateral primary osteoarthritis of hip (principal); M25.551 Pain in right hip
CPT/HCPCS: 73502

== ENCOUNTER → 2024-12-17 10:39 | Outpatient (CLI) | payer MEDICARE, OTHER, SELFPAY ==
--- NOTE | 2024-12-17 10:40 | DI.MRI.S_ITS ---
PROCEDURE: MR LUMBAR SPINE WO CON INDICATIONS: RADICULOPATHY TECHNIQUE: Noncontrast sagittal T1 spin echo and T2 fast echo, sagittal STIR, and T2 fast spin echo through the lumbar spine. In cases with scoliosis, additional coronal T2 fast spin echo may be performed. COMPARISON: [facility], MR, MR LUMBAR SPINE WO CON, 09/18/2023, 11:03. FINDINGS: Image quality: Excellent. Alignment and Curvature: Grade 1 anterolisthesis of L4 on L5. Partial sacralization of the L5 vertebral body. Bone Marrow: Status post L3 through L5 decompression. Marrow is of normal overall signal. No acute vertebral body compression fractures. Spinal Cord: Conus medullaris terminates at the L1-L2 level. Visualized cord demonstrates normal signal and size. Paraspinous Soft Tissues: No paravertebral masses. Atrophic left kidney. T12-L1: Normal appearance. L1-L2: Mild disc bulge and facet arthropathy. No significant central canal or neural foraminal stenosis. L2-L3: Disc desiccation diffuse disc bulge. Facet arthropathy and thickening of ligamentum flavum. Epidural lipomatosis. Moderate central canal stenosis. [id number] right and moderate left neural foraminal stenosis is stable. L3-L4: Disc desiccation diffuse disc bulge. Status post decompression. Mild residual central canal stenosis. Moderate bilateral neural foraminal stenosis is stable. L4-L5: Disc desiccation diffuse disc bulge. Status post decompression. No significant central canal stenosis. Severe right and moderate left neural foraminal stenosis is stable. L5-S1: Facet arthropathy. No central canal or neural foraminal stenosis. IMPRESSION: 1. Multilevel degenerative changes of the lumbar spine status post decompression. Improvement in central canal stenosis at L3-L4 and L4-5. 2. Degenerative changes are stable at other levels, as described above. 3. Moderate central canal stenosis at L2-L3. 4. Severe right neural foraminal stenosis at L4-5. Additional levels of moderate neural foraminal stenosis. Dictated by: Edilberto Morales M.D. on 12/17/2024 at 11:50 Approved by: Edilberto Morales M.D. on 12/17/2024 at 11:55
== END ==
PROVIDERS: PCP Physician Assistant; Referring Provider Physical Medicine & Rehabilitation; Visit Provider Physical Medicine & Rehabilitation
DX: M47.26 Other spondylosis with radiculopathy, lumbar region (principal); M47.27 Other spondylosis with radiculopathy, lumbosacral region; M48.061 Spinal stenosis, lumbar region without neurogenic claudication
CPT/HCPCS: 72148

== ENCOUNTER → 2025-05-07 12:24 | Outpatient (CLI) | payer MEDICARE, OTHER, SELFPAY ==
[2025-05-07 13:25] LABS: Appearance Urine UA SL CLOUDY; Bilirubin Urine UA NEGATIVE (NEGATIVE); Color Urine UA YELLOW; Glucose Urine UA NEGATIVE (Negative); Ketones Urine UA NEGATIVE (NEGATIVE); Leukocyte Esterase Urine UA 2+ (NEGATIVE); Nitrite Urine UA POSITIVE (Negative); Occult Blood Urine UA TRACE-INTACT (Negative); Protein Urine UA NEGATIVE (Negative); Specific Gravity Urine UA 1.010 (1.000-1.035); Urobilinogen Urine UA 0.2 E.U./dL (0.2)
[2025-05-07 13:26] LABS: pH Urine UA 6.0 (4.5-8.0)
[2025-05-07 13:33] LABS: Culture Indicated Urine Specimen Cultured
== END ==
PROVIDERS: PCP Physician Assistant; Referring Provider Urology; Visit Provider Urology
DX: N30.00 Acute cystitis without hematuria (principal); Z87.440 Personal history of urinary (tract) infections
CPT/HCPCS: 81001; 87077; 87086

== ENCOUNTER → 2025-05-20 13:38 | Outpatient (CLI) | payer MEDICARE, OTHER, SELFPAY ==
--- NOTE | 2025-05-20 13:40 | DI.CT.S_ITS ---
PROCEDURE: CT KIDNEY URETER BLADDER (KUB) INDICATIONS: 70 y/o F w/ h/o nephrolithiasis, please eval TECHNIQUE: Axial sections were acquired from the lung bases to the pubic symphysis. Coronal and sagittal reformats were performed. For radiation dose reduction, the following was used: automated exposure control, adjustment of mA and/or kV according to patient size. COMPARISON: [facility], CT, CT KIDNEY URETER BLADDER (KUB), 04/10/2024, 11:30. FINDINGS: Image quality: Diagnostic. Lower Chest: No significant findings. URINARY: Right Kidney: No renal stones or hydronephrosis. Right Ureter: No hydroureter. Left Kidney: Chronic atrophy of left kidney is again seen. Nonobstructing stones are again seen in left renal parenchyma unchanged from prior study. No hydronephrosis. Nonspecific mild left perinephric fat stranding. Left Ureter: No hydroureter. Bladder: Mild diffuse bladder wall thickening, no discrete bladder wall mass. No calcified bladder stones. ABDOMEN: Liver: No contour-deforming solid mass. Gallbladder: No radiopaque gallstones or wall thickening. Biliary ducts: No biliary dilation. Pancreas: No ductal dilation. Spleen: Size is within normal limits. Adrenal Glands: No adrenal nodules. Stomach and Bowel: Normal colonic caliber, without significant wall thickening. Sigmoid diverticulosis without CT evidence of acute diverticulitis. No abscess collection. Peritoneum: No abnormal intraperitoneal fluid. No free air. Ventral Wall: No hernia. Abdominal Nodes: No enlarged retroperitoneal or mesenteric lymph nodes. Vessels: Aorta and inferior vena cava are normal in size. PELVIS: Pelvic Organs: Unremarkable. Pelvic Nodes: Unremarkable. Miscellaneous: No inguinal hernias are seen. Bones: No aggressive appearing bony lesions. 6 mm anterolisthesis of L4 on L5 unchanged from prior study. IMPRESSION: 1. Small 2-3 mm nonobstructing stones again seen in upper pole left kidney. Atrophic appearing left kidney. No hydronephrosis or hydroureter. No solid appearing left renal lesion. Normal appearing right kidney. 2. [id number] bladder wall thickening unchanged from prior study, low- grade cystitis cannot be excluded. No discrete bladder wall mass or calcified bladder stones. 3. No acute inflammatory process is seen in abdomen or pelvis. No free fluid or free air. 4. Other chronic findings as above, unchanged from prior study. Dictated by: Toño Ramos M.D. on 05/20/2025 at 15:00 Approved by: Toño Ramos M.D. on 05/20/2025 at 15:22
== END ==
LOC: CT 13:39
PROVIDERS: PCP Physician Assistant; Referring Provider Physician Assistant; Visit Provider Urology
DX: N20.0 Calculus of kidney (principal); K57.30 Diverticulosis of large intestine without perforation or abscess without bleeding; R10.9 Unspecified abdominal pain; Z87.442 Personal history of urinary calculi
CPT/HCPCS: 74176